=== PATIENT | female | born 1960 | race Caucasian/White ===

== ENCOUNTER 2023-09-01 21:36 | Emergency (ER) | payer OTHER, SELFPAY ==
[2023-09-01 21:52] VITALS: BP 149/82; PULSE 101; RESP 20; TEMP 36.4; O2SAT 94; BMI 35.9
[2023-09-01 22:11] LABS: MANUAL DIFF FLAG NO
[2023-09-01 22:12] LABS: Basophils Percent Auto 0.4 % (0-2); Eosinophils Absolute Auto 0.2 X10*3/uL (0.0-0.4); Eosinophils Percent Auto 1.6 % (0-4); Hematocrit 38.5 % (37.0-47.0); Hemoglobin 12.5 g/dl (12.0-16.0); Imm Gran Abs Auto 0.03 X10*3/uL (0.00-0.03); Imm Gran Pct Auto 0.3 % (0.0-0.4); Lymphocytes Absolute Auto 1.5 X10*3/uL (1.2-4.9); Mean Corpuscular HGB Conc 32.5 g/dl (31.0-35.0); Mean Corpuscular Hemoglobin 29.9 pg (27.0-33.0); Mean Corpuscular Volume 92.1 fL (80.0-98.0); Mean Platelet Volume 10.2 fL (9.4-12.3); Monocytes Absolute Auto 0.5 X10*3/uL (0.1-1.2); Monocytes Percent Auto 4.8 % (2-11); Neutrophils Absolute Auto 7.8 x10*3/uL (2.0-8.3); Neutrophils Percent Auto 77.9 % (45-73); Platelet Count 365 X10*3/uL (160-400); Red Blood Count 4.18 X10*6/uL (4.20-5.50); Red Cell Distribution Width 13.2 % (11.0-16.0)
[2023-09-01 22:31] LABS: Anion Gap 14 (12-20); Blood Urea Nitrogen 9 mg/dL (9-16); Calcium 9.8 mg/dL (8.4-10.2); Carbon Dioxide 29 mmol/L (22-29); Chloride 103 mmol/L (96-108); Creatinine Clr Calc Pharmacy 110.7; Estimated Glomerular Filt Rate > 60; Glucose Random 124 mg/dL (60-115); Potassium 4.1 mmol/L (3.3-5.1); Sodium 142 mmol/L (135-145)
--- OUTSIDE RECORDS SUMMARY | 2023-09-01 22:51 | XMS_ITS | Continuity of Care Document ---
Author Name Unknown Organization [facility] Adult Address [address] [place] [address]- Care Team Providers Care Real Estate Inspector Name Role Phone Xavier VELASCO, Gabriella Hinton Primary Care Physician [id number] Date(s): 07/03/21 - 08/02/21 [facility] Adult [address] [place] [address]- Allergies, Adverse Reactions, Alerts Substance Reaction Severity Status erythromycin Active Bactrim Active Medications fluconazole 150 mg oral tablet 1 tablet = 150 mg, By Mouth, Once, # 1 tablet, 0 Refills, Soft Stop, 07/11/21 16:17:00 EDT, Tablet,[id number], Partial fill upon patient request if the prescription is for a schedule II opioid drug., 172, cm, 07/11/21 15:34:00 EDT, Height Start Date: 07/11/21 Status: Ordered SEROquel 400 mg oral tablet 1 tablet = 400 mg, By Mouth, 2 times a day, 0 Refills, Maintenance, 07/11/21 16:04:00 EDT, Partial fill upon patient request if the prescription is for a schedule II opioid drug. Start Date: 07/11/21 Status: Ordered Walker with seat Walker with seat, See Instructions, # 1 each, Refills 0, Tot. Refills 0, Maintenance, Use walker with seat for gait instability., 07/14/21 10:10:00 EDT, Supply Start Date: 07/14/21 Status: Ordered Problem List Condition Effective Dates Status Health Status Inform ant Anxiety(Confirmed) Active Chronic pelvic pain(Confirmed) Active Insomnia(Confirmed) Active IBS (irritable bowel syndrome)(Confirmed) Active Obesity due to excess calories(Confirmed) Active Degenerative joint disease(Confirmed) Active Psychosis(Confirmed) Active Social History Social History Type Response Smoking Status Never (less than 100 in lifetime);Refused tobacco status screen entered on: 05/16/21 Sex Female
--- OUTSIDE RECORDS SUMMARY | 2023-09-01 22:51 | XMS_ITS | Continuity of Care Document ---
Author Name Unknown Organization [facility] Adult Address [address] [place] [address]- Care Team Providers Care Maintenance Craftsman Name Role Phone Xavier VELASCO, Gabriella Hinton Primary Care Physician En[place] [facility] [place] Date(s): 01/21/21 - 02/20/21 [facility] Adult [address] [place] [address]- Allergies, Adverse Reactions, Alerts Substance Reaction Severity Status erythromycin Active Bactrim Active Medications SEROquel 300 mg oral tablet 1 tablet = 300 mg, By Mouth, Daily at bedtime, # 30 tablet, 0 Refills, Maintenance, 01/10/20 14:56:00 EST, Tablet Start Date: 01/10/20 Stop Date: 02/09/20 Status: Ordered Problem List Condition Effective Dates Status Health Status Inform ant Anxiety(Confirmed) Active Chronic pelvic pain(Confirmed) Active Insomnia(Confirmed) Active IBS (irritable bowel syndrome)(Confirmed) Active Obesity due to excess calories(Confirmed) Active Degenerative joint disease(Confirmed) Active Social History Social History Type Response Smoking Status Never (less than 100 in lifetime) entered on: 01/06/19 Sex Female
--- OUTSIDE RECORDS SUMMARY | 2023-09-01 22:51 | XMS_ITS | Continuity of Care Document ---
Author Name Unknown Organization [facility] Adult Address [address] [place] [address]- Care Team Providers Care Correctional Captain Name Role Phone Gabriella Park NP Primary Care Phys[id number] Date(s): 05/10/23 - 06/09/23 [facility] Adult [address] [place] [address]- Allergies, Adverse Reactions, Alerts Substance Reaction Severity Status erythromycin Active Bactrim Active Medications SEROquel 400 mg oral tablet 1 tablet = 400 mg, By Mouth, 2 times a day, 0 Refills, Maintenance, 05/06/23 13:49:00 EDT, Partial fill upon patient request if the prescription is for a schedule II opioid drug. Start Date: 05/06/23 Status: Ordered SEROquel 400 mg oral tablet 1 tablet = 400 mg, By Mouth, 2 times a day, 0 Refills, Maintenance, 07/11/21 16:04:00 EDT, Partial fill upon patient request if the prescription is for a schedule II opioid drug. Start Date: 07/11/21 Status: Ordered Upright walker Upright walker, See Instructions, # 1 each, Refills 0, Tot. Refills 0, Maintenance, DX: Gait instability R26.81, 05/07/23 16:33:00 EDT, Supply Start Date: 05/07/23 Status: Ordered Problem List Condition Confirmation Course Effective Dates Status Health St [facility] Informant Anxiety Confirmed Active Chronic pelvic pain Confirmed Active Insomnia Confirmed Active IBS (irritable bowel syndrome) Confirmed Active Obesity due to excess calories Confirmed Active Degenerative joint disease Confirmed Active Psychosis Confirmed Active Severe obesity Confirmed Active Social History Social History Type Response Smoking Status Never (less than 100 in lifetime);Refused tobacco status screen entered on: 05/16/21 Sex Female Patient Care team information Care Team Personnel Name: Gabriella Park NP Mary Jane Position: S PCO Associate Professional Member Role: PCP Address: Address: [address] [place] [address]- Care Team Related Persons Name: JANELL ROBERT Address: home [address] [place] [address] Name: SOHAM ROBERT Name: PRECIOUS MORALES Address: [address] [address]
--- OUTSIDE RECORDS SUMMARY | 2023-09-01 22:51 | XMS_ITS | Continuity of Care Document ---
Author Name Unknown Organization [facility] Adult Address [address] [place] [address]- Care Team Providers Care Monogram Machine Operator Name Role Phone Xavier VELASCO, Gabriella Hinton Primary Care Physician [facility] [facility] [place] 11/27/22 - 03/06/23 [facility] Adult [address] [place] [address]- Attending Physician: Gabriella Park NP Allergies, Adverse Reactions, Alerts Substance Reaction Severity [...] Date: 07/14/21 Status: Ordered Problem List Condition Confirmation Course Effective Dates Status Health St [facility] Informant Anxiety Confirmed Active Chronic pelvic pain Confirmed Active Insomnia Confirmed Active IBS (irritable bowel syndrome) Confirmed Active Obesity due to excess calories Confirmed Active Degenerative joint disease Confirmed Active Psychosis Confirmed Active Social History Social History Type Response Smoking Status Never (less than 100 in lifetime);Refused tobacco status screen entered on: 05/16/21 Sex Female Patient Care team information Care Team Personnel Name: Xavier VELASCO, Gabriella Hinton Position: [facility] PCO Associate Professional Member Role: PCP Address: [facility] [address] [place] [address]- Care Team Related Persons Name: JANELL ROBERT Address: home [address] [place] [address] Name: SOHAM ROBERT Name: PRECIOUS MORALES Address: home [address] [place] [address]
--- OUTSIDE RECORDS SUMMARY | 2023-09-01 22:51 | XMS_ITS | Continuity of Care Document ---
Author Name Unknown Organization [facility] Adult Address [address] [place] [address]- Care Team Providers Care Carriage Setter Name Role Phone Xavier VELASCO, Gabriella Hinton Primary Care Physician [id number] Date(s): 05/06/23 - 05/13/23 [facility] Adult [address] [place] [address]- Encounter Diagnosis Urinary frequency(Discharge Diagnosis) - 05/06/23 Risky sexual behavior(Discharge Diagnosis) - 05/06/23 Screening due(Discharge Diagnosis) - 05/06/23 Anxiety(Discharge Diagnosis) - 05/06/23 Obesity due to excess calories(Discharge Diagnosis) - 05/06/23 Psychosis(Discharge Diagnosis) - 05/06/23 Attending Physician: Gabriella Park NP Allergies, Adverse [...] Psychosis Confirmed Active Severe obesity Confirmed Active Diagnosis Diagnosis Type Effective Dates Health Status inical Service Informant Urinary frequency Discharge Diagnosis 05/06/23 Risky sexual behavior Discharge Diagnosis 05/06/23 Screening due Discharge Diagnosis 05/06/23 Anxiety Discharge Diagnosis 05/06/23 Obesity due to excess calories Discharge Diagnosis 05/06/23 Psychosis Discharge Diagnosis 05/06/23 Vital Signs Most recent to oldest [Reference Range]: 1 2 Height 172.00 cm (05/06/23 2:16 PM) 172.00 cm (05/06/23 1:36 PM) Weight 118.9 kg (05/06/23 1:36 PM) Oxygen Saturation [94-100 %] 93 % *L* (05/06/23 1:36 PM) Pulse Rate [55-90 bpm] 94 bpm *H* (05/06/23 1:36 PM) Body Mass Index [18.5-24.99 kg/m2] 40.19 kg/m2 *>HHI* (05/06/23 1:36 PM) Blood Pressure [90-138/55-84 mm Hg] 112/ 68mm Hg (05/06/23 2:16 PM) 129/80mm Hg (05/06/23 1:36 PM) Respiratory Rate [16-30 br/min] 18 br/mi n (05/06/23 1:36 PM) Temperature [96.8-100.4 DegF] 97.6 DegF (05/06/23 1:36 PM) Mode of Delivery (Oxygen) Room air (05/06/23 1:36 PM) Blood pressure sites Arm, left (05/06/23 2:16 PM) Arm, left (05/06/23 1:36 PM) Temperature Route Oral (05/06/23 1:36 PM) Weight Obtained Via Standing scale (05/06/23 1:36 PM) Social History Social History Type Response Smoking Status Never (less than 100 in lifetime);Refused tobacco status screen entered on: 05/16/21 Sex Female Note * Danna Lagos: PERFORM, SIGN, VERIFY Event Display: Patient Education/Instruction Authored Date: [id number] [facility] [place] [facility] Clinical Summary Name TERRELL ROBERT Age 63 Years 1960 PCP Xavier CARRIER BLOWER, Gabriella Hinton [id number] Visit Date 05/06/2023 13:28:00 Additional Instructions: physical when available Scheduled Appointments?? Future Appointments ?[facility] ?[address] ?[facility] ?[place],??[place],??[address] ?Phone:??[phone]?Fax:??-- ?Appt. Date:??05/19/2023?4:15 PM ?Scheduled Provider:??[facility] 1 Follow-Up Instructions ?? Diagnosis High risk heterosexual behavior; Other obesity due to excess calories; Unspecified psychosis not due to a substance or known physiological condition; Anxiety disorder, unspecified; Frequency of micturition; Encounter for screening, unspecified Medications: Please continue your medications until treatment is completed or stopped by your provider. Discuss any questions related to medications with your provider. Medications to Continue with No Changes These medications were not printed or sent to your pharmacy Quetiapine (SEROquel 400 mg oral tablet) 1 tab(s) Oral twice a day. Next Dose: Quetiapine (SEROquel 400 mg oral tablet) 1 tab(s) Oral twice a day. Next Dose: No Longer Take the Following Medications Durable Medical Equipment (Walker with seat) Use walker with seat for gait instability.. Refills: 0. Fluconazole (fluconazole 150 mg oral tablet) 1 tab(s) Oral once. Refills: 0. Allergy Info:?? Bactrim; erythromycin Medications Given This Visit Future Orders ?Complete Urinalysis/Reflex Culture? Order Date:05/06/23?- Complete on or after?05/06/23 ?Hemoglobin A1C (Monitoring)? Order Date:05/06/23?- Complete on or after?05/06/23 ?Herpes Simplex 1/2 IgG Antibodies? Order Date:05/06/23?- Complete on or after?05/06/23 ?Chlamydia/N. Gonorrhoeae TMA (NAAT)? Order Date:05/06/23?- Complete on or after?05/06/23 ?Herpes Simplex Virus PCR, Blood? Order Date:05/06/23?- Complete on or after?05/06/23 ?Hepatitis Profile? Order Date:05/06/23?- Complete on or after?05/06/23 ?Syphilis Testing formerly ordered as RPR? Order Date:05/06/23?- Complete on or after?05/06/23 ?HIV Ab-Ag 4th Generation? Order Date:05/06/23?- Complete on or after?05/06/23 ?Lipid Panel? Order Date:05/06/23?- Complete by?05/06/23 Vital Signs Height 172.00 cm Weight 118.9 kg BMI 40.19 kg/m2 Blood Pressure 112 mm Hg/68 mm Hg Temperature 97.6 DegF Pulse Rate 94 bpm Respiratory Rate 18 br/min 02 Sat Mode of Delivery 93 %/Room air You can now view a summary of your hospital visit from the comfort of your home through a free online portal called yuback. yuback is a website that allows you to securely view your medical information including discharge summary, medications and follow-up visits. ??You can alsosend a secure electronic message to your doctor???s office to request appointments, renew medications or just ask a question. You can enroll at [email or web address] or register during your next office visit. Disclaimer:?? The information provided is of a general nature and is intended to be used in conjunction with the recommendations and advice of your health care practitioner. ??Every effort has been made to ensure that the information provided is accurate and complete at the time it is provided to you however, as your needs change, or, as new ??information becomes available, different or additional instructions may be required. If you have questions, please consult with your primary care provider or pharmacist, as appropriate. ??This information is not intended to serve as substitution for assessment and evaluation by a qualified health care provider. If you do not have a primary care provider, you may find a [facility] provider by calling [facility] [employer] at [phone]. For information about the plan of care including goals and instructions for your diagnosis, please see the patient education orders section of this document. Patient Education Materials?? The content of this educational material or handout may have been modified, supplemented, or adapted from its original content and format to support your individualized medical care. Patient Care team information Care Team Personnel Name: Xavier VELASCO, Gabriella Hinton Position: S PCO Associate Professional Member Role: PCP Address: Address: [address] [place], [place] - Care Team Related Persons Name: JANELL ROBERT Address: home [address] [place], [place] Name: SOHAM ROBERT Name: PRECIOUS MORALES Address: home [address] [place] [address]
--- OUTSIDE RECORDS SUMMARY | 2023-09-01 22:51 | XMS_ITS | Continuity of Care Document ---
Author Name Unknown Organization [facility] Address [address] [place] [address]- Care Team Providers Care Cuprous Chloride Operator Name Role Phone Xavier VELASCO, Gabriella Hinton Primary Care Physician [id number] Date(s): 05/16/21 - 05/23/21 [facility] [address] [place] [address]- Attending Physician: Avinash Novoa MD Admitting Physician: Lucille Moeller MD Referring Physician: Gabriella Park NP Allergies, Adverse Reactions, [...] Active Degenerative joint disease(Confirmed) Active Psychosis(Confirmed) Active Vital Signs Most recent to oldest [Reference Range]: 1 Height 172.00 cm (05/16/21 3:24 PM) Weight 119.8 kg (05/16/21 3:24 PM) Body Mass Index [18.5-24.99] 40.49 *>HHI* (05/16/21 3:24 PM) Blood Pressure [90-138/55-84 mm Hg] 147/ 83mm Hg *H* (05/16/21 3:24 PM) Blood pressure sites Arm, right (05/16/21 3:24 PM) Weight Obtained Via Standing scale (05/16/21 3:24 PM) Social History Social History Type Response Smoking Status Never (less than 100 in lifetime);Refused tobacco status screen entered on: 05/16/21 Sex Female
--- OUTSIDE RECORDS SUMMARY | 2023-09-01 22:51 | XMS_ITS | Continuity of Care Document ---
Author Name Unknown Organization [facility] Adult Address [address] [place] [address]- Care Team Providers Care Dock Hand Name Role Phone Xavier VELASCO, Gabriella Hinton Primary Care Physician [place] [facility]10[place]20 - 01/17/20 [facility] Adult [address] [place] [address]- [facility] Encounter Diagnosis Anxiety(Discharge Diagnosis) - 01/10/20 Chronic pelvic pain(Discharge Diagnosis) - 01/10/20 Degenerative joint disease(Discharge Diagnosis) - 01/10/20 IBS (irritable bowel syndrome)(Discharge Diagnosis) - 01/10/20 Insomnia(Discharge Diagnosis) - 01/10/20 Obesity due to excess calories(Discharge Diagnosis) - 01/10/20 Medicare annual wellness visit, initial(Discharge Diagnosis) - 01/10/20 Attending Physician: Gabriella Park NP Allergies, Adverse [...] excess calories(Confirmed) Active Degenerative joint disease(Confirmed) Active Diagnosis Diagnosis Type Effective Dates Health Status Clinical Service Informant Anxiety Discharge Diagnosis 01/10/20 Chronic pelvic pain Discharge Diagnosis 01/10/20 Degenerative joint disease Discharge Diagnosis 01/10/20 IBS (irritable bowel syndrome) Discharge Diagnosis 01/10/20 Insomnia Discharge Diagnosis 01/10/20 Obesity due to excess calories Discharge Diagnosis 01/10/20 Medicare annual wellness visit, initial Discharge Diagnosis 01/10/20 Vital Signs Most recent to oldest [Reference Range]: 1 2 Height 172.00 cm (01/10/20 3:23 PM) 172.00 cm (01/10/20 2:26 PM) Weight 115.7 kg (01/10/20 2:26 PM) Oxygen Saturation [94-100 %] 95 % (01/10/20 2:26 PM) Pulse Rate [55-90 bpm] 104 bpm *H* (01/10/20 2:26 PM) Body Mass Index [18.5-24.99] 39.11 *>HHI* (01/10/20 2:26 PM) Blood Pressure [90-138/55-84 mm Hg] 110/ 68mm Hg (01/10/20 3:23 PM) 118/72mm Hg (01/10/20 2:26 PM) Respiratory Rate [16-30 br/min] 18 br/mi n (01/10/20 2:26 PM) Temperature [96.8-100.4 DegF] 97.8 DegF (01/10/20 2:26 PM) Mode of Delivery (Oxygen) Room air (01/10/20 2:26 PM) Blood pressure sites Arm, left (01/10/20 3:23 PM) Arm, left (01/10/20 2:26 PM) Temperature Route Oral (01/10/20 2:26 PM) Weight Obtained Via Standing scale (01/10/20 2:26 PM) Social History Social History Type Response Smoking Status Never (less than 100 in lifetime) entered on: 01/06/19 Sex Female
--- OUTSIDE RECORDS SUMMARY | 2023-09-01 22:51 | XMS_ITS | Continuity of Care Document ---
Author Name Unknown Organization [facility] Adult Address [address] [place] [address]- Care Team Providers Care Sales Management Trainee Name Role Phone Gabriella Park NP Primary Care Physician [place] [facility]04[place]23 [place] 03/06/23 [facility] Adult [address] [place] [address]- Attending Physician: Gi Jo Admitting Physician: AdmtrGi Referring Physician: Admtr, ArBalwinder Allergies, Adverse Reactions, Alerts Substance Reaction Severity [...] status screen entered on: 05/16/21 Sex Female EKG study * Event Display: EKG Authored Date: Note * Event Display: Non BH Lab Results Authored Date: * Event Display: Ultrasound Neck, Non-BH Authored Date: * Event Display: Non BH Lab Results Authored Date: MG Breast Views * Event Display: MM Mammogram, Non- BH Authored Date: Patient Care team information Care Team Personnel Name: Xavier VELASCO, Gabriella Hinton Position: S PCO Associate Professional Member Role: PCP Address: Address: [address] [place] [address] [address] [place] [address]- Care Team Related Persons Name: JANELL ROBERT Address: home [address] [place] [address] Name: SOHAM ROBERT Name: PRECIOUS MORALES Address: home [address] [place] [address]
--- OUTSIDE RECORDS SUMMARY | 2023-09-01 22:51 | XMS_ITS | Continuity of Care Document ---
Author Name Unknown Organization [facility] Address [address] [place] [address]- Care Team Providers Care Cognos Administrator Name Role Phone Xavier VELASCO, Gabriella Hinton Primary Care Physician [place] [facility] [place](s): 04/30/22 - 05/30/22 [facility] [address] [place] [address]- Allergies, Adverse Reactions, Alerts Substance Reaction Severity [...]
--- OUTSIDE RECORDS SUMMARY | 2023-09-01 22:51 | XMS_ITS | Continuity of Care Document ---
Author Name Unknown Organization [facility] Address [address] [address] [facility], [address], [place] [address]- Care Team Providers Care Lens Assistant Name Role Phone Gabriella Park NP Primary Care Physician En[facility]BR [id number] Date(s): 05/16/21 - 06/15/21 [facility]af[facility] [address] [facility] [place] [address]- Attending Physician: Gi Jo Admitting Physician: Gi Jo Referring Physician: AdmtrGi Allergies, Adverse Reactions, Alerts Substance Reaction Severity Status erythromycin Active Bactrim Active Medications fluconazole 150 mg oral tablet 1 tablet = 150 mg, By Mouth, Once, # 1 tablet, 0 Refills, Soft Stop, 06/10/21 13:18:00 EDT, [id number], Partial fill upon patient request if the prescription is for a schedule II opioid drug., 172, cm, 05/16/21 15:24:00 EDT, H... Start Date: 06/10/21 Status: Ordered SEROquel 300 mg oral tablet 1 tablet [...]
--- OUTSIDE RECORDS SUMMARY | 2023-09-01 22:51 | XMS_ITS | Continuity of Care Document ---
Author Name Unknown Organization [facility] Adult Address [address] [place] [address]- Care Team Providers Care Network Desktop Support Specialist Name Role Phone Gabriella Park NP [id number] Date[facility]/10/23 - 06/09/23 [facility] Adult [address] [place] [address]- Allergies, Adverse Reactions, Alerts Substance Reaction Severity [...] Professional Member Role: PCP Address: Address: [address] [place] [address]- Care Team Related Persons Name: JANELL ROBERT Address: home [address] [place] [address] Name: SOHAM ROBERT Name: PRECIOUS MORALES Address: [address] [address]
--- OUTSIDE RECORDS SUMMARY | 2023-09-01 22:51 | XMS_ITS | Continuity of Care Document ---
Author Name Unknown Organization [facility] Adult Address [address] [place] [address]- Care Team Providers Care Instructor Programmable Controllers Name Role Phone Xavier VELASCO, Gabriella Hinton Primary Care Physician [place] [facility] [place]21 - 07/31/21 [facility] Adult [address] [place] [address]- Allergies, Adverse Reactions, Alerts Substance Reaction Severity [...]
--- OUTSIDE RECORDS SUMMARY | 2023-09-01 22:52 | XMS_ITS | Continuity of Care Document ---
Author Name Unknown Organization [facility] Adult Address [address] [place] [address]- Care Team Providers Care Wall Man Name Role Phone Gabriella Park NP Primary Care Physician [id number] Date(s): 11/02/22 - 01/09/23 [facility] Adult [address] [place] [address]- Encounter Diagnosis Chronic pelvic pain(Discharge Diagnosis) - 11/19/22 Anxiety(Discharge Diagnosis) - 11/19/22 IBS (irritable bowel syndrome)(Discharge Diagnosis) - 11/19/22 Degenerative joint disease(Discharge Diagnosis) - 11/19/22 Insomnia(Discharge Diagnosis) - 11/19/22 Obesity due to excess calories(Discharge Diagnosis) - 11/19/22 Psychosis(Discharge Diagnosis) - 11/19/22 Attending Physician: Gabriella Park NP Allergies, Adverse [...] joint disease Confirmed Active Psychosis Confirmed Active Diagnosis Diagnosis Type Effective Dates Health Status Clinical Service Informant Chronic pelvic pain Discharge Diagnosis 11/19/22 Anxiety Discharge Diagnosis 11/19/22 IBS (irritable bowel syndrome) Discharge Diagnosis 11/19/22 Degenerative joint disease Discharge Diagnosis 11/19/22 Insomnia Discharge Diagnosis 11/19/22 Obesity due to excess calories Discharge Diagnosis 11/19/22 Psychosis Discharge Diagnosis 11/19/22 Social History Social History Type Response Smoking Status Never (less than 100 in lifetime);Refused tobacco status screen entered on: 05/16/21 Sex Female Patient Care team information Care Team Personnel Name: Xavier VELASCO, Gabriella Hinton Position: [facility] PCO Associate Professional Member Role: PCP Address: Address: [address] [place] [address] [address] [place] [address]- Care Team Related Persons Name: JANELL ROBERT Address: [address] [place] [address] Name: SOHAM ROBERT Name: PRECIOUS MORALES Address: home [address] [place] [address]
--- OUTSIDE RECORDS SUMMARY | 2023-09-01 22:52 | XMS_ITS | Continuity of Care Document ---
Author Name Unknown Organization [facility] Adult Address [address] [place] [address]- Care Team Providers Care Cloth Presser Name Role Phone Xavier VELASCO, Gabriella Hinton Primary Care Physician [id number] Date(s): 07/17/21 - 08/16/21 [facility] [address] [place] [address]- Allergies, Adverse Reactions, Alerts Substance Reaction Severity [...]
--- NOTE | 2023-09-01 23:19 | PC.NURSE ---
pt resting on stretcher, no apparent distress. Denies any SOB or resp involvement. Left side of face is significantly swollen up to eye. Pt able to speak in clear full sentences
[2023-09-01 23:21] VITALS: PULSE 99; RESP 16; O2SAT 100
--- NOTE | 2023-09-01 23:30 | ED.DENTAL ---
HPI - Dental/Oral General Chief complaint: Dental/Oral Stated complaint: ?Dental infection/Facial Swelling Time Seen by Provider: 09/01/23 22:59 Source: patient Mode of arrival: ambulatory Limitations: no limitations History of Present Illness HPI Narrative: Patient with multiple caries , supposed to get extraction complaining of pain with redness of the left cheek for last 24 hours. No fever patient non diabetic no fever no chills Related Data Previous Rx's Medication Instructions Recorded clindamycin HCl 300 mg capsule 300 mg PO QID #40 caps 09/01/23 ibuprofen 600 mg tablet 600 mg PO Q6H PRN fever or pain 09/01/23 #30 tabs tramadol 50 mg tablet 50 mg PO Q6H PRN pain #20 tabs 09/01/23 Allergies Allergy/AdvReac Type Severity Reaction Status Date / Time sulfamethoxazole Allergy Intermediate Rash Verified 09/01/23 21:52 [From Bactrim] trimethoprim [From Bactrim] Allergy Intermediate Rash Verified 09/01/23 21:52 erythromycin base Allergy Unknown CHEST PAIN Verified 09/01/23 21:50 [ERYTHROMYCIN BASE] Review of Systems Review of Systems: Yes all other systems are reviewed and are negative [facility] Social History Social History Smoked in Last 30 Days: No Use of substances other than those prescribed or required for medical reasons: No Advance Directives: No Advance Directives Information Provided: Yes Physical Exam Vital Signs: Vital Signs: Last Vital Signs Temp 97.5 F 09/01/23 21:52 Pulse 99 09/01/23 23:21 Resp 16 09/01/23 23:21 BP 149/82 H 09/01/23 21:52 Pulse Ox 100 09/01/23 23:21 O2 Del Method Room Air 09/01/23 23:21 BMI result Body Mass Index 35.9 Appearance: Alert. Oriented X3. No acute distress. ENT: Pharynx normal. Oral Mucosa moist redness to the left cheek diffuse caries with multiple teeth missing no fluctuance swelling of the gum tender in left upper molar area Neck: Normal inspection. Neck supple. CVS: Normal heart rate and rhythm. Pulses normal. Respiratory: No respiratory distress. Equal air entry bilateral, Abdomen: Soft and nontender. Skin: Skin warm and dry. Normal skin color. Normal skin turgor. Neuro alert oriented x3 Medical Decision Making Medical Decision Making [facility] Narrative: Patient with dental caries with facial cellulitis nontoxic non diabetic will discharge patient home on clindamycin advised to follow with dentist Differential Diagnosis Differential Diagnoses: The differential diagnosis associated with the presentation includes Dental abscess/facial cellulitis Lab Data [facility] Lab Attestation statement: I reviewed the patient's lab results. 09/01/23 22:05 09/01/23 22:05 Labs: Lab Results 09/01/23 Range/Units 22:05 WBC 10.0 (4.8-10.8) X10*3/uL RBC 4.18 L (4.20-5.50) X10*6/uL Hgb 12.5 (12.0-16.0) g/dl Hct 38.5 (37.0-47.0) % MCV 92.1 (80.0-98.0) fL MCH 29.9 (27.0-33.0) pg MCHC 32.5 (31.0-35.0) g/dl RDW 13.2 (11.0-16.0) % Plt Count 365 (160-400) X10*3/uL MPV 10.2 (9.4-12.3) fL Immature Gran % (Auto) 0.3 (0.0-0.4) % Neut % (Auto) 77.9 H (45-73) % Lymph % (Auto) 15.0 L (20-40) % [place] % (Auto) 4.8 (2-11) % Eos % (Auto) 1.6 (0-4) % Baso % (Auto) 0.4 (0-2) % Lymph # (Auto) 1.5 (1.2-4.9) X10*3/uL [place] # (Auto) 0.5 (0.1-1.2) X10*3/uL Eos # (Auto) 0.2 (0.0-0.4) X10*3/uL Baso # (Auto) 0.0 (0.0-0.2) X10*3/uL Abs Immat Gran (auto) 0.03 (0.00-0.03) X10*3/uL Absolute Neuts (auto) 7.8 (2.0-8.3) x10*3/uL Absolute Nucleated RBC 0.000 (0.0-0.012) X10*3/uL Nucleated RBC % (auto) 0.0 (0.0-0.2) /100WBC Sodium 142 (135-145) mmol/L Potassium 4.1 (3.3-5.1) mmol/L Chloride 103 (96-108) mmol/L Carbon Dioxide 29 (22-29) mmol/L Anion Gap 14 (12-20) BUN 9 (9-16) mg/dL Creatinine 0.71 (0.5-1.4) mg/dL Estim Creat Clear Calc 110.7 Estimated GFR > 60 Random Glucose 124 H (60-115) mg/dL Calcium 9.8 (8.4-10.2) mg/dL Discharge Plan Discharge Clinical Impression: Dental caries, Cellulitis of face Patient Disposition: Home, Self-Care Instructions: Cellulitis (ED), Toothache (ED) Additional Instructions: Take antibiotics as prescribed Ibuprofen for pain Follow-up with dentist for further evaluation and tooth extraction Prescriptions: New clindamycin HCl 300 mg capsule 300 mg PO QID Qty: 40 0RF tramadol 50 mg tablet 50 mg PO Q6H PRN (Reason: pain) Qty: 20 0RF ibuprofen 600 mg tablet 600 mg PO Q6H PRN (Reason: fever or pain) Qty: 30 0RF
[2023-09-01] MEDS: Clindamycin HCL 300 MG CAPSULE PO (23:42)
[2023-09-01] MEDS: traMADoL HCL 50 MG TABLET PO (23:42)
== END 2023-09-01 23:46 | disposition home or self-care (01) ==
PROVIDERS: Emergency Provider Internal Medicine; PCP Nurse Practitioner Family
DX: K02.9 Dental caries, unspecified (principal); L03.211 Cellulitis of face; K08.89 Other specified disorders of teeth and supporting structures
CPT/HCPCS: 36415; 80048; 85025; 99283; 99284